=== PATIENT | male | born 1985 | race African-American/Black ===

== ENCOUNTER 2022-03-31 21:50 | Emergency (ER) | payer OTHER ==
[~2022-03-31] VITALS: Ht 167.6 cm; Wt 92.8 kg
[2022-03-31 21:54] VITALS: BP 139/89
[2022-03-31] MEDS ORDERED: PROAAER10 INH (21:58)
[2022-03-31] MEDS ORDERED: LIDOCAINE 1% MDV 20ML VIAL SC ONE (22:30)
[2022-03-31] MEDS ORDERED: BOOSTRIX/ADACEL VACCINE (DIPHTH/PERTUSS/ACELL/TETANUS) 0.5ML SYR IM.IMMUN ONE (23:15)
[2022-03-31] MEDS ORDERED: DERMABOND TOPICAL SKIN ADHESIVE TOP ONE (23:15)
== END 2022-03-31 23:39 | disposition home or self-care (01) ==
LOC: M ED 21:50
DX: S01.511A Laceration without foreign body of lip, initial encounter (principal); S01.412A Laceration without foreign body of left cheek and temporomandibular area, initial encounter; X99.1XXA Assault by knife, initial encounter; Y92.149 Unspecified place in prison as the place of occurrence of the external cause; J45.909 Unspecified asthma, uncomplicated; F17.200 Nicotine dependence, unspecified, uncomplicated; Z88.0 Allergy status to penicillin